=== PATIENT | male | born 1965 | race Caucasian/White ===

== ENCOUNTER 2019-11-10 17:42 | Emergency (ER) | payer BC ==
[2019-11-10] MEDS ORDERED: Lactated Ringers 1,000 ML IV ONE (17:47)
[2019-11-10] MEDS ORDERED: Sodium Chloride 0.9% 10 ML Syringe FLUSH PRN (17:47)
[2019-11-10] MEDS ORDERED: Pantoprazole 40 MG Vial IVPUSH ONE (17:47)
[2019-11-10] MEDS ORDERED: Famotidine 20 MG/2 ML SDV IVPUSH ONE (17:47)
--- NOTE | 2019-11-10 17:47 | EDM.PDOC ---
ED HPI GENERAL MEDICAL PROBLEM - General Chief Complaint: Abdominal Pain Stated Complaint: Abdominal Pain Time Seen by Provider: 11/10/19 17:45 Source of Information: Reports: Patient, Old Records ([facility] chart/EMR) History Limitations: Reports: No Limitations - History of Present Illness INITIAL COMMENTS - FREE TEXT/NARRATIVE: The patient drove himself to the emergency room via private automobile for evaluation of 10/10 intermittent bilateral lower quadrant abdominal pain, including some spasms and cramping, with radiation to the left upper quadrant. Note that symptoms started about 18:00 hours on 11/09 with normal bowel movement yesterday prior to onset of the above symptoms. He has had similar symptoms in the past with negative workup for cholelithiasis, although he did have borderline positive De Jesus's sign at time of last gallbladder ultrasound on 06/12. No known exposure to infection, food poisoning, etc., although he has noticed that his urine is somewhat green during the last 24 hours and has had 4 small bowel movement since about 3 AM this morning at time of his last significant oral intake. Some mild anorexia, although the patient did eat some toast earlier today. He also did take some Pepto-Bismol earlier today with no improvement of his symptoms. No recent history of other abdominal pain, heartburn, nausea, constipation, melena, gross hematochezia, or any food intolerance, including fatty foods, etc.. He denies any gross hematuria, colic, or other UTI symptoms. The patient denies any chest pain/pressure, heart flutter , dizziness, orthostasis, orthopnea, diaphoresis, paresthesias, recent decreased exercise tolerance, or any other anginal-type symptoms. The patient also denies any recent fever, cough, wheezing, dyspnea, etc.. Onset: Gradual Onset Date: 11/09/19 Onset Time: 18:00 Duration: Getting Worse, Intermittent Location: Reports: Abdomen. Denies: Head, Face, Neck, Chest, Back, Upper Extremity, Left, Upper Extremity, Right, Lower Extremity, Left, Lower Extremity , Right, Radiates to Quality: Reports: Same as Previous Episode, Other (As above) Severity: Severe Improves with: Reports: None Worsens with: Reports: None Context: Reports: Other (As above). Denies: Sick Contact, Trauma Associated Symptoms: Reports: Loss of Appetite. 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 Denies: Cataract, Glaucoma, Hard of Hearing, Macular Degeneration, Otitis Media , Retinal Detachment Other HEENT History: Patient wears glasses. Beginning floaters. Cardiovascular History: Reports: High Cholesterol. Denies: Afib, Aneurysm, Arrhythmia, Blood Clots/VTE/DVT, CAD, Heart Failure, Heart Murmur, Hypertension , CO, PVD, Syncope Respiratory History: Reports: None. Denies: Asthma, Bronchitis, Recurrent, COPD , Intubation, Difficult, Intubation, Previous, PE, Pneumonia, Recurrent, Pneumothorax, Sleep Apnea, TB Gastrointestinal History: Reports: Fatty Liver, Gastritis, GERD, Hemorrhoids, Hiatal Hernia, PUD, Other (See Below). Denies: Celiac Disease, Cholelithiasis, Chronic Constipation, Chronic Diarrhea, Fecal Incontinence, GI Bleed, Inflammatory Bowel Disease, Irritable Bowel Syndrome, Jaundice Other Gastrointestinal History: Possible dysfunctional gallbladder with limited workup as below. Genitourinary History: Reports: None. Denies: Acute Renal Failure, BPH, Chronic Renal Insuffiency, Renal Calculus, STD, Urinary Incontinence, UTI, Recurrent Musculoskeletal History: Reports: Arthritis, Back Pain, Chronic, Fracture, Neck Pain, Chronic, Osteoarthritis, Other (See Below). Denies: Amputation, Gout, RA , SLE Other Musculoskeletal History: Phalangeal fracture of digit #5 of the left hand as a teenager. Neurological History: Denies: Cerebral Aneurysms, Concussion, CVA, Headaches, Chronic, Head Trauma, Migraines, MS, Neuropathy, Diabetic, Neuropathy, Peripheral, Parkinson's, Seizure, Speech Problems, TIA, Vertigo Psychiatric History: Reports: Addiction, Anxiety, Depression, Other (See Below) . Denies: Abuse, Victim of, ADD, ADHD, Psych Hospitalization(s), PTSD, Suicide Attempt, Suicidal Ideation Other Psychiatric History: Alcohol use as below Endocrine/Metabolic History: Reports: Obesity/BMI 30+. Denies: Diabetes, Type I , Diabetes, Type II, Diabetes Mellitus, Type 3c, Hypothyroidism, IDDM Hematologic History: Reports: None. Denies: Anemia, Blood Transfusion(s), Iron Deficiency Immunologic History: Reports: None. Denies: AIDS, HIV, SLE Oncologic (Cancer) History: Reports: None. Denies: Basal Cell Carcinoma, Colon , Hodgkin's Lymphoma, Leukemia, Lymphoma, Malignant Melanoma, Non-Hodgkin's Lymphoma, Prostate, Squamous Cell Carcinoma Dermatologic History: Reports: None. Denies: Eczema, Psoriasis - Infectious Disease History Infectious Disease History: Reports: None. Denies: C-Difficile, Chicken Pox, Measles, Meningitis, Mononucleosis, MRSA, Mumps, Pertussis (Whooping Cough), Rheumatic Fever, Rubella, Scarlet Fever, Shingles, TB, VRE - Past Surgical History Head Surgeries/Procedures: Reports: None HEENT Surgical History: Reports: Oral Surgery, Other (See Below). Denies: Adenoidectomy, Cataract Surgery, Eye Surgery, Laser Surgery, LASIK, Myringotomy w Tube(s), Naso-Sinus Surgery, Tonsillectomy Other HEENT Surgeries/Procedures: Multiple teeth extractions. Cardiovascular Surgical History: Reports: None. Denies: Varicose Respiratory Surgical History: Reports: None. Denies: Thoracentesis GI Surgical History: Reports: None. Denies: Appendectomy, Cholecystectomy, Colonoscopy, EGD, Hernia, Abdominal, Hernia, Inguinal, Hernia Repair/Other Male Surgical History: Reports: Circumcision, Other (See Below). Denies: TURP-Transurethral Resection of Prostate, Vasectomy Other Male Surgeries/Procedures: Circumcision as an . Endocrine Surgical History: Reports: None. Denies: Thyroid Biopsy Neurological Surgical History: Reports: None. Denies: C-Spine, Discectomy, Laminectomy, Lumbar Spine, Sacral Spine, Spinal Fusion, Thoracic Spine, Vertebroplasty Musculoskeletal Surgical History: Reports: None. Denies: Arthroscopic Procedure , Carpal Tunnel, Ganglion Cyst, Joint Replacement, ORIF, Shoulder Surgery Oncologic Surgical History: Reports: None Dermatological Surgical History: Reports: None - Past Imaging History Past Imaging History: Reports: CAT Scan (Abdomen and pelvis on 06/12/16.), Ultrasound (Gallbladder ultrasound , 02/11/16, and 05/04/12.) Social & Family History - Family History Family Medical History: Unobtainable (He is adopted) - Tobacco Use Smoking Status *Q: Former Smoker Tobacco Use Within Last Twelve Months: Cigarettes Years of Tobacco use: 38 Packs/Tins Daily: 0.3 Packs/Tins Daily Comment: Smoked between ages 15 and 53 with maximum use of one pack per day. Used Tobacco, but Quit: Yes Smoking Cessation Information Provided To Patient: No Second Hand Smoke Exposure: Yes Source of Second Hand Smoke Exposure: smokes Second Hand Smoke Education Provided: Yes - Caffeine Use Caffeine Use: Reports: None. Denies: Coffee, Energy Drinks, Soda, Tea - Alcohol Use Alcohol Use History: Yes Days Per Week of Alcohol Use: 7 Number of Drinks Per Day: 2 Number of Drinks Per Day Comment: Usually beer. DWI 5 with previous history of borderline alcohol abuse without treatment in his late 20s and early 30s. Total Drinks Per Week: 14 Date of Last Drink: 11/07/19 Alcohol Use in Last Twelve Months: Yes Alcohol Use Frequency: Daily - Recreational Drug Use Recreational Drug Use: Yes Drug Use in Last 12 Months: No Recreational Drug Type: Reports: Cocaine (Intranasal experimental 1 at about age 22.), Marijuana/Hashish (Experimental as a teenager.) - Living Situation & Occupation Living situation: Reports: (1992. 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 ED EXAM, GI/ABD - Physical Exam Exam: See Below Exam Limited By: No Limitations General Appearance: Alert, WD/WN, No Apparent Distress Eyes: Bilateral: Normal Appearance (No nystagmus. Patient wearing glasses.), EOMI (PERRLA) Ears: Normal External Exam, Normal Canal, Hearing Grossly Normal, Normal TMs Nose: Normal Inspection, Normal Mucosa, No Blood Throat/Mouth: Normal Inspection, Normal Lips, Normal Teeth (Multiple missing teeth), Normal Gums, Normal Oropharynx, Normal Voice, No Airway Compromise. No : Dysphagia, Perioral Cyanosis Head: Atraumatic, Normocephalic. No: Facial Swelling, Facial Tenderness, Sinus Tenderness Neck: Normal Inspection, Supple, Non-Tender, Full Range of Motion. No: Carotid Bruit, Lymphadenopathy (L), Lymphadenopathy (R), Thyromegaly Respiratory/Chest: No Respiratory Distress, Lungs Clear, Normal Breath Sounds, No Accessory Muscle Use, Chest Non-Tender. No: Pleural Rub, Retractions Cardiovascular: Normal Peripheral Pulses, Regular Rate, Rhythm, No Edema, No Gallop, No JVD, No Murmur, No Rub. No: Gallop/S3, Gallop/S4, Friction Rub GI/Abdominal Exam: Normal Bowel Sounds, Soft, Non-Tender, No Organomegaly, No Distention, No Abnormal Bruit, No Mass, Pelvis Stable, Other (Obese). No: Guarding (Male) Exam: Deferred Rectal (Males) Exam: Normal Exam, Normal Rectal Tone, Prostate Normal, Black Stool (Secondary to Pepto-Bismol), Heme + Stool (Borderline positive likely secondary to Pepto-Bismol and/or hemorrhoids), Hemorrhoids (Grade 23 internal/ external). No: Tenderness (No Adriel space tenderness) Back Exam: Normal Inspection, Full Range of Motion, Other (Mild scoliosis). No : CVA Tenderness (L), CVA Tenderness (R), Muscle Spasm Extremities: Normal Inspection, Normal Range of Motion, Non-Tender, No Pedal Edema, Normal Capillary Refill. No: Luc's Sign Neurological: Alert, Oriented, CN II-XII Intact, Normal Cognition, Normal Gait, Normal Reflexes, No Motor/Sensory Deficits Psychiatric: Normal Affect, Normal Mood Skin Exam: Warm, Dry, Intact, Normal Color, No Rash. No: Diaphoretic, Ecchymosis, Jaundice, Pallor, Petechiae, Wound/Incision Lymphatic: No Adenopathy Course - Vital Signs Last Recorded V/S: Last Vital Signs Temp 36.8 C 11/10/19 17:45 Pulse 68 11/10/19 18:15 Resp 16 11/10/19 18:15 BP 111/78 11/10/19 18:15 Pulse Ox 99 11/10/19 18:15 Vital Signs - 24 hr 11/10/19 11/10/19 17:45 18:15 Temperature [ 36.8 C Temporal] Pulse, 78 68 Peripheral [ Pulse Oximetry] Respiratory 16 16 Rate Blood Pressure 127/67 111/78 [Right Upper Arm] O2 Sat by Pulse 98 99 Oximetry - Orders/Labs/Meds Orders: Active Orders 24 hr Category Date Time Status Peripheral IV Care [RC] . DIRECTED Care 11/10/19 17:48 Active Nothing Per Oral Diet [DIET] Diet 11/10/19 Breakfast Active Abdomen Series w Chest 1V [CR] Stat Exams 11/10/19 17:47 Taken CULTURE URINE [RM] Stat Lab 11/10/19 17:47 Ordered Sodium Chloride 0.9% [Saline Flush] Med 11/10/19 17:47 Active 10 ml FLUSH ASDIRECTED PRN Obtain Past Medical Record [OM.PC] Urgent Oth 11/10/19 17:47 Active Peripheral IV Insertion Adult [OM.PC] Stat Oth 11/10/19 17:47 Ordered Resuscitation Status Stat Resus Stat 11/10/19 17:47 Ordered Medication Orders Sodium Chloride (Saline Flush) 10 ml FLUSH ASDIRECTED PRN PRN Reason: Keep Vein Open Last Admin: 11/10/19 18:05 Dose: 10 ml Labs: Laboratory Tests 11/10/19 11/10/19 11/10/19 Range/Units 17:50 17:50 17:50 WBC 10.4 H (4.0-10.2) K/uL RBC 4.78 (4.33-5.41) M/uL Hgb 14.6 (13.1-16.8) g/dL Hct 41.3 (39.0-49.0) % MCV 86.4 (84.0-98.0) fL MCH 30.5 (28.2-33.3) pg MCHC 35.4 (31.7-36.0) g/dL RDW 12.7 (11.2-14.1) % Plt Count 234 (150-350) K/uL Neut % (Auto) 73.3 (45.0-80.0) % Lymph % (Auto) 13.3 (10.0-50.0) % Foster % (Auto) 11.7 (2.0-14.0) % Eos % (Auto) 1.6 (0.0-5.0) % Baso % (Auto) 0.1 (0.0-2.0) % Neut # (Auto) 7.61 H (1.40-7.00) K/uL Lymph # (Auto) 1.38 (0.50-3.50) K/uL Foster # (Auto) 1.22 H (0.00-1.00) K/uL Eos # (Auto) 0.17 (0.00-0.50) K/uL Baso # (Auto) 0.01 (0.00-0.20) K/uL PT 9.7 (9.5-12.0) SEC INR 1.0 APTT 29.9 (21.0-31.3) SEC Sodium (136-145) mmol/L Potassium (3.5-5.1) mmol/L Chloride (98-107) mmol/L Carbon Dioxide (21.0-32.0) mmol/L BUN (7-18) mg/dL Creatinine (0.51-1.17) mg/dL Est Cr Clr Drug Dosing mL/min Estimated GFR (MDRD) mL/min Glucose (74-106) mg/dL Lactic Acid (0.4-2.0) mmol/L Uric Acid (2.6-7.2) mg/dL Calcium (8.5-10.1) mg/dL Magnesium (1.8-2.4) mg/dL Total Bilirubin (0.2-1.0) mg/dL Direct Bilirubin (0.0-0.2) mg/dL Indirect Bilirubin mg/dL AST (15-37) U/L ALT (12-78) U/L Alkaline Phosphatase (46-116) IU/L Total Protein (6.4-8.2) g/dL Albumin (3.4-5.0) g/dL Amylase 87 (25-115) U/L Lipase (73-393) U/L Specimen Type Urine Color Urine Appearance Urine pH (5.0-9.0) Ur Specific [place] (1.005-1.030) Urine Protein (NEGATIVE) mg/dL Urine Glucose (UA) (NEGATIVE) mg/dL Urine Ketones (NEGATIVE) mg/dL Urine Occult Blood (NEGATIVE) Urine Nitrite (NEGATIVE) Urine Bilirubin (NEGATIVE) Urine Urobilinogen (0.2-1.0) E.U./dL Ur Leukocyte Esterase (NEGATIVE) Urine RBC /HPF Urine WBC /HPF Ur Epithelial Cells /LPF Urine Bacteria (NONE TO FEW) /HPF 11/10/19 11/10/19 11/10/19 Range/Units 17:50 17:50 17:50 WBC (4.0-10.2) K/uL RBC (4.33-5.41) M/uL Hgb (13.1-16.8) g/dL Hct (39.0-49.0) % MCV (84.0-98.0) fL MCH (28.2-33.3) pg MCHC (31.7-36.0) g/dL RDW (11.2-14.1) % Plt Count (150-350) K/uL Neut % (Auto) (45.0-80.0) % Lymph % (Auto) (10.0-50.0) % Foster % (Auto) (2.0-14.0) % Eos % (Auto) (0.0-5.0) % Baso % (Auto) (0.0-2.0) % Neut # (Auto) (1.40-7.00) K/uL Lymph # (Auto) (0.50-3.50) K/uL Foster # (Auto) (0.00-1.00) K/uL Eos # (Auto) (0.00-0.50) K/uL Baso # (Auto) (0.00-0.20) K/uL PT (9.5-12.0) SEC INR APTT (21.0-31.3) SEC Sodium 140 (136-145) mmol/L Potassium 3.6 (3.5-5.1) mmol/L Chloride 103 (98-107) mmol/L Carbon Dioxide 25.8 (21.0-32.0) mmol/L BUN 12 (7-18) mg/dL Creatinine 0.78 (0.51-1.17) mg/dL Est Cr Clr Drug Dosing 87.13 mL/min Estimated GFR (MDRD) > 60 mL/min Glucose 94 (74-106) mg/dL Lactic Acid 0.8 (0.4-2.0) mmol/L Uric Acid 5.2 (2.6-7.2) mg/dL Calcium 9.1 (8.5-10.1) mg/dL Magnesium 2.1 (1.8-2.4) mg/dL Total Bilirubin 1.6 H 1.6 H (0.2-1.0) mg/dL Direct Bilirubin 0.2 (0.0-0.2) mg/dL Indirect Bilirubin 1.4 mg/dL AST 14 L (15-37) U/L ALT 31 (12-78) U/L Alkaline Phosphatase 108 (46-116) IU/L Total Protein 7.3 (6.4-8.2) g/dL Albumin 3.5 (3.4-5.0) g/dL Amylase (25-115) U/L Lipase 118 (73-393) U/L Specimen Type Urine Color Urine Appearance Urine pH (5.0-9.0) Ur Specific [place] (1.005-1.030) Urine Protein (NEGATIVE) mg/dL Urine Glucose (UA) (NEGATIVE) mg/dL Urine Ketones (NEGATIVE) mg/dL Urine Occult Blood (NEGATIVE) Urine Nitrite (NEGATIVE) Urine Bilirubin (NEGATIVE) Urine Urobilinogen (0.2-1.0) E.U./dL Ur Leukocyte Esterase (NEGATIVE) Urine RBC /HPF Urine WBC /HPF Ur Epithelial Cells /LPF Urine Bacteria (NONE TO FEW) /HPF 11/10/19 Range/Units 18:10 WBC (4.0-10.2) K/uL RBC (4.33-5.41) M/uL Hgb (13.1-16.8) g/dL Hct (39.0-49.0) % MCV (84.0-98.0) fL MCH (28.2-33.3) pg MCHC (31.7-36.0) g/dL RDW (11.2-14.1) % Plt Count (150-350) K/uL Neut % (Auto) (45.0-80.0) % Lymph % (Auto) (10.0-50.0) % Foster % (Auto) (2.0-14.0) % Eos % (Auto) (0.0-5.0) % Baso % (Auto) (0.0-2.0) % Neut # (Auto) (1.40-7.00) K/uL Lymph # (Auto) (0.50-3.50) K/uL Foster # (Auto) (0.00-1.00) K/uL Eos # (Auto) (0.00-0.50) K/uL Baso # (Auto) (0.00-0.20) K/uL PT (9.5-12.0) SEC INR APTT (21.0-31.3) SEC Sodium (136-145) mmol/L Potassium (3.5-5.1) mmol/L Chloride (98-107) mmol/L Carbon Dioxide (21.0-32.0) mmol/L BUN (7-18) mg/dL Creatinine (0.51-1.17) mg/dL Est Cr Clr Drug Dosing mL/min Estimated GFR (MDRD) mL/min Glucose (74-106) mg/dL Lactic Acid (0.4-2.0) mmol/L Uric Acid (2.6-7.2) mg/dL Calcium (8.5-10.1) mg/dL Magnesium (1.8-2.4) mg/dL Total Bilirubin (0.2-1.0) mg/dL Direct Bilirubin (0.0-0.2) mg/dL Indirect Bilirubin mg/dL AST (15-37) U/L ALT (12-78) U/L Alkaline Phosphatase (46-116) IU/L Total Protein (6.4-8.2) g/dL Albumin (3.4-5.0) g/dL Amylase (25-115) U/L Lipase (73-393) U/L Specimen Type Urinvoid Urine Color Yellow Urine Appearance Clear Urine pH 6.0 (5.0-9.0) Ur Specific [place] 1.015 (1.005-1.030) Urine Protein Negative (NEGATIVE) mg/dL Urine Glucose (UA) Negative (NEGATIVE) mg/dL Urine Ketones Negative (NEGATIVE) mg/dL Urine Occult Blood Trace-intact H (NEGATIVE) Urine Nitrite Negative (NEGATIVE) Urine Bilirubin Negative (NEGATIVE) Urine Urobilinogen 0.2 (0.2-1.0) E.U./dL Ur Leukocyte Esterase Negative (NEGATIVE) Urine RBC Not seen /HPF Urine WBC 0-5 /HPF Ur Epithelial Cells Not seen /LPF Urine Bacteria Not seen (NONE TO FEW) /HPF Urine specimen set up for culture and sensitivity. Microbiology 11/10/19 18:05 Stool Occult Blood (YULIANA) - Final Stool / Feces Hemoccult borderline positive per formulation technician likely secondary to Pepto-Bismol and/or hemorrhoids. Meds: Medications Generic Name Dose Route Start Last Admin Trade Name Freq PRN Reason Stop Dose Admin Sodium Chloride 10 ml 11/10/19 17:47 11/10/19 18:05 Saline Flush FLUSH 10 ml ASDIRECTED PRN Administration Keep Vein Open Discontinued Medications Generic Name Dose Route Start Last Admin Trade Name Freq PRN Reason Stop Dose Admin Famotidine 40 mg 11/10/19 17:47 11/10/19 18:05 Pepcid IVPUSH 11/10/19 17:48 40 mg ONETIME ONE Administration Lactated Ringer's 1,000 mls @ 999 mls/hr 11/10/19 17:47 11/10/19 18:02 Ringers, Lactated IV 11/10/19 18:47 999 mls/hr .BOLUS ONE Administration Pantoprazole Sodium 40 mg 11/10/19 17:47 11/10/19 18:04 Protonix Iv IVPUSH 11/10/19 17:48 40 mg ONETIME ONE Administration - Radiology Interpretation Free Text/Narrative:: Acute abdominal x-rays shows borderline pulmonary obstructive disease with no pulmonary infiltrates, cardiomegaly, CHF, pneumothorax, intra-abdominal calcifications, free air, ileus, obstruction, fluid levels, etc. Mild osteoarthritic changes and scoliosis were noted. Departure - Departure Time of Disposition: 19:15 Disposition: Home, Self-Care 01 Condition: Good Clinical Impression: Peptic reflux disease, Golden syndrome Abdominal pain Qualifiers: Abdominal location: lower abdomen, unspecified Qualified Code(s): R10.30 - Lower abdominal pain, unspecified Osteoarthritis Qualifiers: Osteoarthritis location: multiple joints Osteoarthritis type: primary Qualified Code(s): M15.0 - Primary generalized (osteo)arthritis Hyperlipidemia Qualifiers: Hyperlipidemia type: mixed hyperlipidemia Qualified Code(s): E78.2 - Mixed hyperlipidemia - Discharge Information *PRESCRIPTION DRUG MONITORING PROGRAM REVIEWED*: Not Applicable *COPY OF PRESCRIPTION DRUG MONITORING REPORT IN PATIENT JOSHUA: Not Applicable Instructions: Viral Gastroenteritis, Adult, [id number], Abdominal Pain, Adult , [id number] Referrals: Pascual Dietrich PA [Primary Care Provider] - Forms: ED Department Discharge, ED Return to Work/School Form Additional Instructions: 1. Followup with your regular provider in 10-14 days as directed for reevaluation, CBC, comprehensive metabolic panel, lipase, and amylase. Test procedure results as below should be discussed at that time. Bring these discharge instructions with you to that visit. 2. This facility will call you tomorrow concerning scheduling of abdominal ultrasound for tomorrow with nothing to eat or drink until otherwise directed by our technicians 3. Work excuse- See Form 4. HIDA scan to be conducted in this facility on 11/17, if the above abdominal ultrasound did not indicate any gallstones 5. Tylenol 650 mg by mouth every 4 hours when necessary as directed. 6. No OTC ibuprofen, aspirin, OTC Aleve, or other NSAIDs until otherwise directed by your regular provider.Thereafter, may initiate OTC ibuprofen 2-3 tabs by mouth every 6 hours with food as needed versus OTC Aleve 1-2 tabs every 12 hours with food as needed versus other prescription NSAIDS as previously directed by your regular providers. 7. NEVER EXCEED THE RECOMMENDED DOSE OF MEDICINES, INCLUDING OTC MEDICINES, ETC. 8. Irving diet including encouragement of oral fluids such as sports drinks, etc. for 24-48 hours as directed. Advance to heart healthy diet as tolerated thereafter. 9. Discuss recommended EGD and colonoscopy with your regular provider once your gallbladder workup has been completed as above. 10. Congratulations about stopping smoking. 11. Immediately after this visit verify that your cellular telephone's voicemail has been activated and is empty. Also verify that your home telephone 's answering machine is operating properly and has space to receive messages. Note that it is sometimes necessary for us to be able to contact you at a later date to discuss your medical care. 12. Please remember that we are ALWAYS here for you and want to answer any questions you may have. Feel free to call the hospital any time and we call you back JEREMY. Sepsis Event Note - Focused Exam Vital Signs: Vital Signs Temp Pulse Resp BP Pulse Ox 11/10/19 18:15 68 16 111/78 99 11/10/19 17:45 36.8 C 78 16 127/67 98 Date Exam was Performed: 11/10/19 Time Exam was Performed: 18:57 - Problem List & Annotations (1) Abdominal pain SNOMED Code(s): 78177829 Code(s): R10.9 - UNSPECIFIED ABDOMINAL PAIN Status: Acute Priority: High Current Visit: Yes Onset Date: 11/10/19 Annotation/Comment:: Note history of borderline positive De Jesus sign in the past with no further additional workup to this point. Abdominal ultrasound will be conducted in this facility on 11/11 with subsequent HIDA scan on 11/17 depending on those test results. Suspect dysfunctional gallbladder with possible surgical consultation. Hemorrhoids and borderline positive Hemoccult stools with recent Pepto-Bismol with no evidence of significant GI bleed. Patient would benefit from an EGD and colonoscopy as his gallbladder status has been determined. He has not had these procedures in the past. Close follow-up by his regular provider as per discharge instructions. Work excuse provided for HIDA scan on 11/17. Note despite initial previous sets of use of OTC Aleve patient denies any recent Aleve use for quite some time. No evidence of significant infection with only borderline leukocytosis. Can not rule out possible mild beginning viral gastroenteritis. Qualifiers: Abdominal location: lower abdomen, unspecified Qualified Code(s): R10.30 - Lower abdominal pain, unspecified (2) Peptic reflux disease SNOMED Code(s): 360096097 Code(s): K21.9 - GASTRO-ESOPHAGEAL REFLUX DISEASE WITHOUT ESOPHAGITIS Status: Chronic Priority: Medium Current Visit: Yes Annotation/Comment:: Continue Prilosec for now with EGD and colonoscopy as above. (3) Osteoarthritis SNOMED Code(s): 560000732 Code(s): M19.90 - UNSPECIFIED OSTEOARTHRITIS, UNSPECIFIED SITE Status: Chronic Priority: Medium Current Visit: Yes Annotation/Comment:: Stable by history with no recent NSAID use. Qualifiers: Osteoarthritis location: multiple joints Osteoarthritis type: primary Qualified Code(s): M15.0 - Primary generalized (osteo)arthritis (4) Hyperlipidemia SNOMED Code(s): 46114208 Code(s): E78.5 - HYPERLIPIDEMIA, UNSPECIFIED Status: Chronic Current Visit: Yes Annotation/Comment:: Currently under therapy. Qualifiers: Hyperlipidemia type: mixed hyperlipidemia Qualified Code(s): E78.2 - Mixed hyperlipidemia (5) Golden syndrome SNOMED Code(s): 83633807 Code(s): E80.4 - GILBERT SYNDROME Status: Acute Priority: Medium Current Visit: Yes Onset Date: 11/10/19 Annotation/Comment:: Borderline. Observe for now. - Problem List Review Problem List Initiated/Reviewed/Updated: Yes - My Orders Last 24 Hours: My Active Orders 11/10/19 17:47 Abdomen Series w Chest 1V [CR] Stat CULTURE URINE [RM] Stat Sodium Chloride 0.9% [Saline Flush] 10 ml FLUSH ASDIRECTED PRN Obtain Past Medical Record [OM.PC] Urgent Peripheral IV Insertion Adult [OM.PC] Stat Resuscitation Status Stat 11/10/19 17:48 Peripheral IV Care [RC] . DIRECTED 11/10/19 Breakfast Nothing Per Oral Diet [DIET] - Assessment/Plan Last 24 Hours: My Active Orders 11/10/19 17:47 Abdomen Series w Chest 1V [CR] Stat CULTURE URINE [RM] Stat Sodium Chloride 0.9% [Saline Flush] 10 ml FLUSH ASDIRECTED PRN Obtain Past Medical Record [OM.PC] Urgent Peripheral IV Insertion Adult [OM.PC] Stat Resuscitation Status Stat 11/10/19 17:48 Peripheral IV Care [RC] . DIRECTED 11/10/19 Breakfast Nothing Per Oral Diet [DIET] Assessment:: As above Plan: As above. Extensive precautions were given to the patient, who is in agreement with the treatment plan. See Patient Instructions for further treatment and plan.
[2019-11-10 18:18] VITALS: BP 111/78; PULSE 68
[2019-11-10 18:20] LABS: CHLORIDE,CL 103 mmol/L (98-107); SODIUM,NA 140 mmol/L (136-145)
== END 2019-11-10 19:15 | disposition home or self-care (01) ==
LOC: LL.ED 17:42
DX: R10.31 Right lower quadrant pain (principal); R10.32 Left lower quadrant pain; M15.0 Primary generalized (osteo)arthritis; E78.2 Mixed hyperlipidemia; E80.4 Gilbert syndrome; K21.9 Gastro-esophageal reflux disease without esophagitis; E78.00 Pure hypercholesterolemia, unspecified; E66.9 Obesity, unspecified; Z79.899 Other long term (current) drug therapy
CPT/HCPCS: 36415; 74022; 80053; 81001; 82150; 82247; 82248; 82272; 83605; 83690; 83735; 84550; 85025; 85610; 85730; 87086; 96361; 96374; 96375; 99284-25; C9113; J3490; J7120

== ENCOUNTER 2020-10-04 09:38 | Day surgery (SDC) | payer BC ==
--- OUTSIDE RECORDS SUMMARY | 2020-09-11 16:21 | XMSREPORT | Referral Summary ---
:1965 Author Organization [facility] s Address [address] [place] [address] [address] [place] [address] Care Team Providers Name Role Phone Milo Lema PA-C Primary Care Provider Milo Lema PA-C Attributed Provider Reason for Referral Transitions of Care (Routine) Status Reason Specialty Diagnoses / Referred By Referred To Procedures Contact Contact New Request Service Not Diagnoses Screening for colon cancer Karen Lema, Health, [facility] Available at [facility]ENN[facility] [address] [place] [address] [place] [id number] Phone: Fax: Reason for Visit Reason Comments Gas Abdominal Pain Told 1 year ago that he had gall stones. Pain has progrossively getting worse. Encounter Details Date Type Department Care Team Description 09/07/2020 Office Visit [facility] Karen Lema, RLQ discomfo rt (Primary Dx); [facility] JENNIE Pure hypercholesterolemia; [address] [place] [address] [place] [address] [place] [address] Allergies Active Allergy Reactions Severity Noted Date Comments Peanut Oil Rash 02/11/2016 documented as of this encounter (statuses as of 09/07/2020) Medications Medication Sig Dispensed Refills Start Date End Date Status atorvaSTATin (LIPITOR) 20 TAKE 1 TABLET 90 tablet 3 11/17/2019 Active mg tabletIndications: Pure (20 MG) BY hypercholesterolemia MOUTH EVERY NIGHT AT BEDTIME omeprazole (PRILOSEC) 20 TAKE 1 90 capsule 1 05/17/2020 Active mg capsuleIndications: CAPSULE (20 Gastroesophageal reflux MG) BY MOUTH disease, esophagitis 1 TIME A DAY presence not specified IN THE MORNING documented as of this encounter (statuses as of 09/07/2020) Active Problems Problem Noted Date Abnormal TSH 09/28/2018 Acid reflux 12/05/2015 Depression, reactive 12/05/2015 Pure hypercholesterolemia 04/09/2015 Overview: Overview: 03/2015 10 your ASCVD risk approximately 12%; hypertriglyceridemia Hemorrhoid 04/02/2015 Compulsive tobacco user syndrome 04/02/2015 documented as of this encounter (statuses as of 09/07/2020) Resolved Problems Problem Noted Date Resolved Date Calculus of gallbladder without cholecystitis 11/26/2016 11/26/2016 Overview: ER visit in 2017 documented as of this encounter (statuses as of 09/07/2020) Immunizations Name Administration Dates Next Due TDAP 04/02/2015, 06/17/2010 documented as of this encounter Social History Tobacco Use Types Packs/Day Years Used Date Current Some Day Smoker Cigarettes 0.25 Quit : 09/14/2018 Smokeless Tobacco: Never Used Comments: smokes very little, one pack / week Alcohol Use Drinks/Week oz/Week Comments Yes 8 Cans of beer 8.0 Sex Assigned at Date Recorded Not on file documented as of this encounter Last Filed Vital Signs Vital Sign Reading Time Taken Comments Blood Pressure 112/60 09/07/2020 8:18 AM [facility] UNIT CLERK Pulse 84 09/07/2020 8:18 AM HEALTH UNIT CLERK Temperature 36.4 C (97.6 F) 09/07/2020 8:18 AM HEALTH UNIT CLERK Respiratory Rate - - Oxygen Saturation 95% 09/07/2020 8:18 AM HEALTH UNIT CLERK Inhaled Oxygen Concentration - - Weight 72.5 kg (159 lb 12.8 oz) 09/07/2020 8:18 AM HEALTH UNIT CLERK Height - - Body Mass Index 26.59 05/17/2018 8:19 AM CDT documented in this encounter Functional Status Functional Status Response Date of Assessment Do you have difficulty with walking, balance, climbing No 11/26/2016 stairs, or had a fall in the last 3 months? documented as of this encounter Plan of Treatment Name Type Priority Associated Diagnoses Order S chedule LIPID PANEL Lab Routine Pure hypercholesterolemia Ex pected: 09/07/2020 (Approximate), Expires: 2021 COMPREHENSIVE METABOLIC Lab Routine RLQ discomfort Ex pected: 09/07/2020 PANEL (Approximate), Expires: 2021 COMPLETE BLOOD COUNT WITH Lab Routine RLQ discomfort Expected: 09/07/2020 DIFFERENTIAL (Approximate), Expires: 2021 Name Type Priority Associated Diagnoses Order S [facility]IC REFERRAL Referral Routine Screening for colon Order ed: 09/07/2020 ENDOSCOPY NON ONE CHART cancer documented as of this encounter Visit Diagnoses Diagnosis RLQ discomfort - Primary Abdominal pain, right lower quadrant Pure hypercholesterolemia Screening for colon cancer Special screening for malignant neoplasm s, colon documented in this encounter
[~2020-10-04 09:38] MED LIST: Lactated Ringers 1,000 ML IV SCH; Sodium Chloride 0.9% 10 ML Syringe FLUSH PRN
--- NOTE | 2020-10-04 10:25 | PCM.PN ---
- General Info Date of Service: 10/04/20 - Review of Systems Systems Review Comment:: 54-year-old male referred for his initial screening colonoscopy. He has noted some right-sided abdominal pain over a long period of time. Patient is medically stable to proceed today. His recent history and physical is reviewed and no significant changes are noted. I have discussed the proposed colonoscopy with the patient. Risks such as but not limited to bleeding and GI injury reviewed. He agrees to proceed. - Patient Data Vitals - Most Recent: Last Vital Signs Temp 97.0 F 10/04/20 09:57 Pulse 84 10/04/20 09:57 Resp 16 10/04/20 09:57 BP 110/72 10/04/20 09:57 Pulse Ox 97 10/04/20 09:57 Weight - Most Recent: 72.121 kg Med Orders - Current: Current Medications Lactated Ringer's (Ringers, Lactated) 1,000 mls @ 125 mls/hr IV ASDIRECTED ESTELA Last Admin: 10/04/20 10:10 Dose: 125 mls/hr Documented by: Sodium Chloride (Saline Flush) 10 ml FLUSH ASDIRECTED PRN PRN Reason: Keep Vein Open Sepsis Event Note - Focused Exam Vital Signs: Vital Signs Temp Pulse Resp BP Pulse Ox 10/04/20 09:57 97.0 F 84 16 110/72 97 - Problem List Review Problem List Initiated/Reviewed/Updated: Yes - My Orders Last 24 Hours: My Active Orders 10/04/20 09:30 Patient Status [ADT] Routine Peripheral IV Care [RC] . DIRECTED Verify Patient Consent Obtain [RC] ASDIRECTED Lactated Ringers [Ringers, Lactated] 1,000 ml IV ASDIRECTED Sodium Chloride 0.9% [Saline Flush] 10 ml FLUSH ASDIRECTED PRN Peripheral IV Insertion Adult [OM.PC] Routine - Assessment Assessment:: Colon cancer screening - Plan Plan:: Colonoscopy
[2020-10-04] MEDS ORDERED: Midazolam 1 MG/ML 2 ML SDV ONE ×3 (10:27→11:39)
[2020-10-04] MEDS ORDERED: Propofol 200 MG/20 ML SDV ONE ×3 (10:28→11:39)
--- NOTE | 2020-10-04 11:16 | PCM.OPNOTE ---
- General Post-Op/Procedure Note Date of Surgery/Procedure: 10/04/20 Operative Procedure(s): Colonoscopy with Polypectomy Findings: Multiple polyps, colon otherwise normal Pre Op Diagnosis: Colon cancer screening Post-Op Diagnosis: Colon polyps Anesthesia Technique: MAC Primary Surgeon: Eliseo Medley Pathology: Colon polyps EBL in mLs: 0 Complications: None Condition: Good
[2020-10-04 12:07] VITALS: BP 109/69; PULSE 59
--- NOTE | 2020-10-04 12:58 | OR ---
Date of Procedure: 10/04/2020 PREOPERATIVE DIAGNOSIS: Colon cancer screening. POSTOPERATIVE DIAGNOSIS: Colon polyps. OPERATIONS PERFORMED: Colonoscopy with polypectomy. INDICATIONS FOR SURGERY: This 54-year-old male comes for his initial screening colonoscopy. He has been having some right-sided abdominal pain. FINDINGS: Three polyps were noted on today's exam. There is an 8 mm pedunculated polyp in the rectum, 10 cm from the anal verge. There is a 1-cm sessile polyp in the descending colon 45 cm from the anal verge and a 12 mm sessile polyp in the distal transverse colon. The remainder of the colon and terminal ileum appeared normal. DESCRIPTION OF PROCEDURE: The patient was taken to the operating room. He was given intravenous sedation, and with him in the left lateral decubitus position, digital rectal exam was performed showing no rectal masses. The Olympus colonoscope was inserted into the rectum. Retroflexed examination of the rectal canal was performed. In the rectum, the above-described polyp was identified, it was removed with a cautery snare and retrieved into a polyp trap. The scope was then carefully advanced under direct visualization through the entire length of the colon until the cecum was reached. Cecal acquisition was confirmed by noting the normal internal cecal anatomy including the appendiceal orifice and the ileocecal valve. The light was also noted to transilluminate the abdominal wall in the right lower quadrant. The ileocecal valve was cannulated and the terminal ileum examined and appeared normal. The scope was then slowly withdrawn sequentially re-examining the colonic segments. During the withdrawal of the scope, 2 above-described sessile polyps are identified and turned as encountered, they are both removed with a cautery snare and retrieved into a polyp trap. Examination was completed and no sign of any bleeding or other complication. The scope was removed and the patient was taken from the operating room in satisfactory condition. ESTIMATED BLOOD LOSS: Zero. COMPLICATIONS: None. PROGNOSIS: Good. LISA Medley MD /[id number]
== END 2020-10-04 11:51 | disposition home or self-care (01) ==
LOC: LL.SDS 09:38
PROVIDERS: ATTEND Surgery
DX: D12.8 Benign neoplasm of rectum (principal); D12.3 Benign neoplasm of transverse colon; D12.4 Benign neoplasm of descending colon; E78.5 Hyperlipidemia, unspecified; Z91.010 Allergy to peanuts; Z79.899 Other long term (current) drug therapy; E78.00 Pure hypercholesterolemia, unspecified; Z01.812 Encounter for preprocedural laboratory examination; Z20.822 Contact with and (suspected) exposure to COVID-19
CPT/HCPCS: 00812; J2250; J2704; J7120; U0002

== ENCOUNTER 2024-05-05 12:21 | Day surgery (SDC) | payer BC ==
[~2024-05-05 12:21] MED LIST changes: -Lactated Ringers 1,000 ML IV SCH; +Midazolam 1 MG/ML 2 ML SDV ONE; +Propofol 200 MG/20 ML SDV ONE; -Sodium Chloride 0.9% 10 ML Syringe FLUSH PRN
[2024-05-05] MEDS ORDERED: Sodium Chloride 0.9% 10 ML Syringe FLUSH PRN (12:45)
[2024-05-05] MEDS: Lactated Ringers 1,000 ML IV SCH (13:08)
[2024-05-05] MEDS ORDERED: Glycopyrrolate 0.2 MG/ML SDV IVPUSH ONE (13:56)
[2024-05-05] MEDS ORDERED: Lidocaine 2% 5 ML SDV ONE (13:56)
[2024-05-05 14:40] VITALS: BP 131/75; PULSE 61
== END 2024-05-05 15:22 | disposition home or self-care (01) ==
LOC: LL.SDS 12:21
PROVIDERS: ATTEND Surgery
DX: K22.2 Esophageal obstruction (principal); K21.00 Gastro-esophageal reflux disease with esophagitis, without bleeding; K44.9 Diaphragmatic hernia without obstruction or gangrene; Z86.010 Personal history of colon polyps; Z87.891 Personal history of nicotine dependence; E78.5 Hyperlipidemia, unspecified; Z79.899 Other long term (current) drug therapy
CPT/HCPCS: 00731; C1726; J1596; J2250; J2704; J3490; J7120

== ENCOUNTER 2025-07-27 09:41 | Day surgery (SDC) | payer BC ==
[~2025-07-27 09:41] MED LIST changes: +Sodium Chloride 0.9% 10 ML Syringe FLUSH PRN
[2025-07-27] MEDS: Lactated Ringers 1,000 ML IV SCH (10:24)
[2025-07-27 12:09] VITALS: BP 118/78; PULSE 57
== END 2025-07-27 12:40 | disposition home or self-care (01) ==
LOC: LL.SDS 09:41
PROVIDERS: ATTEND Surgery
DX: D12.3 Benign neoplasm of transverse colon (principal); D12.8 Benign neoplasm of rectum; K57.30 Diverticulosis of large intestine without perforation or abscess without bleeding; K21.9 Gastro-esophageal reflux disease without esophagitis; Z91.09 Other allergy status, other than to drugs and biological substances; Z79.899 Other long term (current) drug therapy; Z86.0100 Personal history of colon polyps, unspecified
CPT/HCPCS: J2250; J2704; J7120